=== PATIENT | male | born 1935 | race Caucasian/White ===

== ENCOUNTER 2016-12-29 13:49 | Day surgery (SDC) | payer MEDICARE ==
[~2016-12-29 13:49] MED LIST: CEFAZOLIN 1 Gram 50 ML IVPB ONE
[2016-12-29] MEDS ORDERED: LIDOCAINE 2% MDV (20MG/ML) 20ML VIAL IV ONE (14:00)
[2016-12-29] MEDS ORDERED: PROPOFOL 10 MG/ML VIAL IV ONE (14:00)
[2016-12-29] MEDS ORDERED: SUCCINYLCHOLINE 20 MG/ML 10ML IVP ONE (14:00)
[2016-12-29] MEDS ORDERED: FENTANYL PF 100MCG/2ML VIAL IV ONE (14:00)
[2016-12-29 14:25] LABS: BASO % 0.4 % (0-6); EOS % 0.8 % (0-6); GRAN % 62.1 % (47-80); HEMATOCRIT 48.8 % (42.0-52.0); HEMOGLOBIN 16.3 gm/dl (14.0-18.0); MEAN CORPUSCULAR HEMOGLOBIN 33.1 pg (27-33); MEAN CORPUSCULAR HGB CONC 33.4 g/dl (32-36); MEAN PLATELET VOLUME 9.9 fl (7.4-10.4); MONO % 15.7 % (0-9); PLATELET COUNT 331 K/uL (130-400); RED BLOOD COUNT 4.93 M/uL (4.40-5.70); RED CELL DISTRIBUTION WIDTH 13.5 % (11.5-14.5); WHITE BLOOD COUNT W/O DIFF 8.4 K/uL (4.2-12.2)
[2016-12-29 14:50] LABS: ANION GAP 9.6 (7-16); BLOOD UREA NITROGEN 19 mg/dL (9-20); CARBON DIOXIDE 34.4 mmol/L (22-30); CREATININE 0.8 mg/dL (0.66-1.25); EST GLOMERULAR FILTRATION RATE > 60 ml/min; GLUCOSE,RANDOM 109 mg/dL (70-110)
--- NOTE | 2016-12-30 15:22 | Operative Note ---
DATE OF PROCEDURE: 12/30/2016 PREOPERATIVE DIAGNOSES: BLADDER TUMOR AND GROSS HEMATURIA. POSTOPERATIVE DIAGNOSES: BLADDER TUMOR AND GROSS HEMATURIA. SURGEON: ALEX MCGHEE M.D. REDUCTION PLANT SUPERVISOR: NONE. PROCEDURE: CYSTOSCOPY, TRANSURETHRAL RESECTION OF BLADDER TUMOR. ANESTHESIA: GENERAL. FINDINGS: A 2 cm bladder tumor at the right lateral wall completely excised. PROCEDURE: Pre-op informed consent was obtained. Antibiotics were given. Sedation was administered. The patient was brought to the Operating Room and placed in the lithotomy position with the genitalia prepped and draped sterilely. The urethra was calibrated with sounds and the cystoscope was advanced into the bladder without difficulty. The bladder was inspected carefully systematically and, as noted above, there is a roughly 2 cm papillary- appearing tumor at the right lateral wall very close to the bladder neck. The remainder of the bladder appeared unremarkable except for trabeculation. The ureteral orifices were uninvolved and appeared normal in appearance and positioning. The Monopolar Resectoscope was then used to systematically resect the tumor completely. There was careful cautery used to control bleeding and there was no evidence of bladder perforation or ureteral injury by the end of the procedure. No further visible tumor was left. Fragments were removed with an Ellick evacuator and given to Pathology. The bladder was then irrigated several times. Urine remained completely clear and again hemostasis at the end of the procedure was excellent. I should note that the patient did show an obturator nerve reflex and for that reason he was changed from a spinal anesthetic to general anesthetic with paralysis so that I could complete the tumor resection safely. The scope was then withdrawn. John catheter was placed until the patient's spinal anesthetic wears off. The procedure was terminated. The patient was transferred to Recovery in stable condition. PLAN: I would like to leave the John catheter in for one week actually and have the patient follow-up in the [facility] to have it removed and to discuss the pathology report. Alex Mcghee M.D. Time & Date cc: Dr. Car Ledezma JOB NUMBER: [id number] MTDD
== END 2016-12-29 21:59 | disposition home or self-care (01) ==
LOC: SUR 13:49 → MEDSURG 16:54 → SUR 21:59
PROVIDERS: ATTEND Urology
DX: C67.2 Malignant neoplasm of lateral wall of bladder (principal); I10 Essential (primary) hypertension
CPT/HCPCS: 52234; 00912; 85025; 80048; 88307; J3010; J0690; J0330